=== PATIENT | male | born 1960 | race Caucasian/White ===

== ENCOUNTER → 2017-11-13 | Outpatient (CLI) | payer OTHER ==
--- NOTE | 2017-11-14 08:29 | US ---
Study: Scrotal sonogram. Indication: TESTICULAR HYPOFUNCTION Technique: Multiplanar grayscale Doppler sonographic images of the scrotum obtained. Findings: The right testicle measures 3.8 x 3.2 x 2.4 cm. The left testicle measures 3.7 x 2.4 x 1.9 cm. The right epididymal head measures 1.1 cm. The left epididymal head measures 1.0 cm. It demonstrates a 1.2 cm complex cyst. 3.6 mm shadowing calcification right testicle noted. 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 No testicular mass identified. Appropriate color Doppler flow to the bilateral testicles noted. Large right hydrocele. No varicocele. Impression: Large right hydrocele. Tubular ectasia bilateral rete testes. 3.6 mm shadowing right testicular calcification. 1.2 cm complex left epididymal cyst. Electronically signed by: Dario Zamarripa MD 11/14/2017 8:28 AM CDT
== END ==
LOC: US 13:54
PROVIDERS: ATTEND General Practice
DX: E29.1 Testicular hypofunction (principal); N43.3 Hydrocele, unspecified; N50.89 Other specified disorders of the male genital organs